=== PATIENT | female | born 1995 | race African-American/Black ===

== ENCOUNTER 2017-01-17 07:45 | Emergency (ER) | payer MEDICAID ==
[~2017-01-17] VITALS: Ht 162.6 cm; Wt 105.0 kg
[~2017-01-17 07:45] MED LIST: BENZ1CAP34 PO; ZITHTAB PO
[2017-01-17 07:46] VITALS: BP 136/74; PULSE 86; RESP 18; TEMP 98.7; O2SAT 98
[2017-01-17] MEDS ORDERED: TYLE325T PO (08:04)
--- NOTE | 2017-01-17 08:12 | PD ---
HPI Chief Complaint: Cold / Flu Symptoms Time Seen by Provider: 08:11 Travel History International Travel<30 days: No Contact w/Intl Traveler<30days: No Traveled to known affect area: No History of Present Illness HPI 21-year-old female presents to the emergency Department with complaint of cough , nasal congestion, sore throat, body aches times one and half weeks. Reports subjective fever at the beginning of her illness. Says worst symptom is sore throat. Denies lump in throat, unusual drooling, difficulty swallowing. Reports painful swallowing. Denies ear pain. Denies nausea, vomiting. Denies chest pain, shortness of breath. Took a Z-Gurpreet that she had at home and finished it about a week ago, with continued symptoms. No known allergies. Has no other medical complaints. No other modifying factors or associated signs and symptoms. PFSH Past Medical History Diminished Hearing: No Immunizations Current: Yes ?: Not : 0 Social History Alcohol Use: No Tobacco Use: No Substance Use: No Allergies-Medications (Allergen,Severity, Reaction): Coded Allergies: No Known Allergies (Verified , 01/17/17) Reported Meds & Prescriptions Reported Meds & Active Scripts Active Magic Mouthwash Pediatric/Adult Liq (Lidocaine/Diphenhydr/Alum/Mg/Simeth) 60 Ml Susp 5 Ml SWISH-SPIT Q3HR PRN Each 5mL contains: Diphenydramine 4.5mg, Viscous Lidocaine 2% 10mg, Maalox Advanced Regular Strength 2.7ml Reported Tylenol (Acetaminophen) 325 Mg Tab 650 Mg PO Q6H PRN Review of Systems Except as stated in HPI: all other systems reviewed are Neg Physical Exam Narrative GENERAL: Well-nourished, well-developed female patient, in no acute distress; afebrile, nontoxic-appearing SKIN: Warm and dry. No rash. HEAD: Atraumatic. Normocephalic. EYES: Pupils equal and round. No scleral icterus. No injection or drainage. ENT: Mucosa pink and moist. Oropharynx with erythema and edema; without exudates. No uvular edema. No uvular, palatal, or tonsillar deviation. Airway patent. EARS: Bilateral pinnae and external canals appear within normal limits. Bilateral tympanic membranes without erythema, dullness or perforation. NECK: Trachea midline. No lymphadenopathy. CARDIOVASCULAR: Regular rate and rhythm. No murmur appreciated. RESPIRATORY: No accessory muscle use. Clear to auscultation. Breath sounds equal bilaterally. No retractions or tachypnea. GASTROINTESTINAL: Abdomen soft, non-tender, nondistended. Hepatic and splenic margins not palpable. Bowel sounds are active 4 quadrants. MUSCULOSKELETAL: No obvious deformities. No clubbing. No cyanosis. No edema. NEUROLOGICAL: Awake and alert. Oriented 3. No obvious cranial nerve deficits. Motor grossly within normal limits. Normal speech. Moves all extremities. 5/5 strength to all extremities. PSYCHIATRIC: Appropriate mood and affect; insight and judgment normal. Data Data Last Documented VS Vital Signs Date Time Temp Pulse Resp B/P Pulse Ox O2 Delivery O2 Flow Rate FiO2 01/17/17 07:46 98.7 86 18 136/74 98 Room Air Orders Influenzae A/B Antigen (01/17/17 08:06) Group A Rapid Strep Screen (01/17/17 08:06) Strep Culture (Group A) (01/17/17 08:10) MDM Medical Decision Making Medical Screen Exam Complete: Yes Emergency Medical Condition: Yes Medical Record Reviewed: Yes Differential Diagnosis Influenza, strep pharyngitis, viral pharyngitis, sinusitis, viral illness Narrative Course 21-year-old female with cold/flu symptoms times one and half weeks. Patient is afebrile and nontoxic-appearing. Reports subjective fever at the beginning of her illness. Has taken a Z-Gurpreet and finished it about a week ago with continued symptoms. Rapid strep and influenza ordered. 0933: Rapid strep negative. 0954: Influenza negative. Discussed viral illness and symptomatic management. Magic mouthwash prescribed for home. Instructed patient to follow up with primary care provider. Patient verbalizes understanding and agreement with treatment plan. Patient is medically cleared and stable for discharge. Discussed reasons to return to the emergency department. Patient agrees with treatment plan. The patients vital signs are stable and the patient is stable for outpatient follow-up and treatment. Patient discharged home, stable and in no acute distress. Diagnosis Primary Impression: Viral illness [facility]errals: [facility] Primary Care Physician Patient Instructions: Cold Symptoms (ED), General Instructions, Safe Use of Cough and Cold Medicines (ED) Departure Forms: Tests/Procedures, Work Release Enter return to work date: Jan 18, 2017 Additional Instructions: Throw away and change your toothbrush 24 hours after starting antibiotics Get plenty of sleep/rest Rest your voice Drink plenty of fluids to prevent dehydration Use warm saltwater gargles to soothe throat pain Use an air humidifier/turn off ceiling fans Use throat lozenges as needed for sore throat Use ibuprofen or acetaminophen as needed to relieve pain and fever Follow-up with your primary care provider within 2-4 days Return immediately to the emergency department with worsening of symptoms Med/Other Pt SpecificInfo: Prescription(s) given Scripts Nzrrajpkvqqsafp-Xnavefeyd-Vcm-Alum-Simeth Liq (Magic Mouthwash Pediatric/Adult Liq)60 Ml Susp5 Ml SWISH-SPIT Q3HR PRN (SORE THROAT) #60 ML Ref 0 Each 5mL contains: Diphenydramine 4.5mg, Viscous Lidocaine 2% 10mg, Maalox Advanced Regular Strength 2.7ml Prov:Carmela Millan 01/17/17 Disposition: 01 DISCHARGE HOME Condition: Stable Carmela Millan Jan 17, 2017 08:11
[2017-01-17] MEDS ORDERED: MAGICPED SWISH-SPIT (09:33)
== END 2017-01-17 09:58 | disposition home or self-care (01) ==
LOC: NEPK 07:45
DX: B34.9 Viral infection, unspecified (principal)
CPT/HCPCS: 87081; 87804; 87880; 99283

== ENCOUNTER 2017-06-03 10:42 | Emergency (ER) | payer SELFPAY ==
[~2017-06-03] VITALS: Ht 162.6 cm; Wt 110.0 kg
[~2017-06-03 10:42] MED LIST changes: -BENZ1CAP34 PO; +MAGICPED SWISH-SPIT; +TYLE325T PO; -ZITHTAB PO
[2017-06-03 10:44] VITALS: BP 129/73; PULSE 128; RESP 16; TEMP 101.5; O2SAT 98
[2017-06-03] MEDS ORDERED: IBUPROFEN 600 MG TAB PO ONE (11:15)
[2017-06-03] MEDS ORDERED: OSELTAMIVIR PHOSPHATE 75 MG CAP PO ONE (11:15)
[2017-06-03] MEDS ORDERED: TYLE325T PO (11:25)
[2017-06-03] MEDS ORDERED: OSEL75 PO (11:25)
--- NOTE | 2017-06-03 11:26 | PD ---
HPI Chief Complaint: Cold / Flu Symptoms Time Seen by Provider: 11:03 Travel History International Travel<30 days: No Contact w/Intl Traveler<30days: No Traveled to known affect area: No History of Present Illness HPI 22-year-old female pleasant well-nourished well-developed. She complains of sore throat fever muscle aches and pains in coughing for about 2 days. Onset gradual. Timing constant. No known sick contacts. She denies chest pain and vomiting. Occasional nausea reported. Sleep has been difficult. PFSH Past Medical History Diminished Hearing: No Immunizations Current: Yes LMP: 06/02/17 : 0 Social History Alcohol Use: No Tobacco Use: No Substance Use: No Allergies-Medications (Allergen,Severity, Reaction): Coded Allergies: No Known Allergies (Verified Adverse Reaction, Unknown, 06/03/17) Reported Meds & Prescriptions Reported Meds & Active Scripts Active Tylenol (Acetaminophen) 325 Mg Tab 650 Mg PO Q6H PRN 7 Days Tamiflu (Oseltamivir Phosphate) 75 Mg Cap 75 Mg PO BID 7 Days Magic Mouthwash Pediatric/Adult Liq (Lidocaine/Diphenhydr/Alum/Mg/Simeth) 60 Ml Susp 5 Ml SWISH-SPIT Q3HR PRN Each 5mL contains: Diphenydramine 4.5mg, Viscous Lidocaine 2% 10mg, Maalox Advanced Regular Strength 2.7ml Reported Tylenol (Acetaminophen) 325 Mg Tab 650 Mg PO Q6H PRN Review of Systems Except as stated in HPI: all other systems reviewed are Neg General / Constitutional: Positive: Fever HENT: Positive: Sore Throat Physical Exam Narrative GENERAL: 22-year-old female pleasant well-nourished well-developed SKIN: Warm and dry. HEAD: Atraumatic. Normocephalic. EYES: Pupils equal and round. No scleral icterus. No injection or drainage. ENT: No nasal bleeding or discharge. Mucous membranes pink and moist. Posterior oropharynx intact and patent without erythema or asymmetry. NECK: Trachea midline. No JVD. CARDIOVASCULAR: Regular rate and rhythm. RESPIRATORY: No accessory muscle use. Clear to auscultation. Breath sounds equal bilaterally. GASTROINTESTINAL: Abdomen soft, non-tender, nondistended. Hepatic and splenic margins not palpable. MUSCULOSKELETAL: Extremities without clubbing, cyanosis, or edema. No obvious deformities. NEUROLOGICAL: Awake and alert. No obvious cranial nerve deficits. Motor grossly within normal limits. Five out of 5 muscle strength in the arms and legs. Normal speech. PSYCHIATRIC: Appropriate mood and affect; insight and judgment normal. Data Data Last Documented VS Vital Signs Date Time Temp Pulse Resp B/P (MAP) Pulse Ox O2 Delivery O2 Flow Rate FiO2 06/03/17 10:44 101.5 128 16 129/73 (91) 98 Room Air Vital signs reviewed Orders Orders Oseltamivir (Tamiflu) (06/03/17 11:15) Ibuprofen (Motrin) (06/03/17 11:15) Ed Discharge Order (06/03/17 11:30) [facility] Medical Decision Making Medical Screen Exam Complete: Yes Emergency Medical Condition: Yes Medical Record Reviewed: Yes Differential Diagnosis influenza, pna, strep pharyngitis, viral syndrome Narrative Course Presentation most in keeping with influenza syndrome. Tamiflu prescribed. The patient is tachycardic and febrile here. Given her age and the fairly classic presentation for influenza we will defer a sepsis work up. Tylenol aggressive fluid hydration at home. Pt offered IVF here however feels oral hydration at home is reasonable plan and is preferred by patient as well. Diagnosis Primary Impression: Influenza Med/Other Pt SpecificInfo: Prescription(s) given Scripts Acetaminophen (Tylenol) 325 Mg Tab 650 MG PO Q6H Y for FEVER for 7 Days, #56 TAB 0 Refills Prov: Lambert Bunch MD 06/03/17 Oseltamivir (Tamiflu) 75 Mg Cap 75 MG PO BID for Mgmt Viral Infection for 7 Days, #14 CAP 0 Refills Prov: Lambert Bunch MD 06/03/17 Disposition: 01 DISCHARGE HOME Condition: Stable Lambert Bunch MD Jun 03, 2017 11:26
== END 2017-06-03 12:06 | disposition home or self-care (01) ==
LOC: NEPD 10:42
DX: J11.1 Influenza due to unidentified influenza virus with other respiratory manifestations (principal); R11.0 Nausea
CPT/HCPCS: 99283

== ENCOUNTER 2017-07-16 15:00 | Emergency (ER) | payer SELFPAY ==
[~2017-07-16 15:00] MED LIST changes: +OSEL75 PO
[2017-07-16 15:02] VITALS: BP 141/90; PULSE 107; RESP 14; TEMP 98; O2SAT 98
--- NOTE | 2017-07-16 15:28 | PD ---
HPI Chief Complaint: Injury Time Seen by Provider: 15:19 Travel History International Travel<30 days: No Contact w/Intl Traveler<30days: No Traveled to known affect area: No History of Present Illness HPI 22-year-old female here for evaluation of right foot/ankle, lower back pain. She reports that prior to arrival she slipped in the bathroom. She now has an aching pain in her right foot and right ankle diffusely as well as her left lower back. Pain is moderate, aggravated by slipping and falling and ambulating with no alleviating factors. She has no other complaints at this time. [facility] Past Medical History Diminished Hearing: No Immunizations Current: Yes : 0 Social History Alcohol Use: No Tobacco Use: No Substance Use: No Allergies-Medications (Allergen,Severity, Reaction): Coded Allergies: No Known Allergies (Verified Adverse Reaction, Unknown, 07/16/17) Reported Meds & Prescriptions Reported Meds & Active Scripts Active Tylenol (Acetaminophen) 325 Mg Tab 650 Mg PO Q6H PRN 7 Days Tamiflu (Oseltamivir Phosphate) 75 Mg Cap 75 Mg PO BID 7 Days Magic Mouthwash Pediatric/Adult Liq (Lidocaine/Diphenhydr/Alum/Mg/Simeth) 60 Ml Susp 5 Ml SWISH-SPIT Q3HR PRN Each 5mL contains: Diphenydramine 4.5mg, Viscous Lidocaine 2% 10mg, Maalox Advanced Regular Strength 2.7ml Reported Tylenol (Acetaminophen) 325 Mg Tab 650 Mg PO Q6H PRN Review of Systems General / Constitutional: No: Fever, Chills Gastrointestinal: No: Nausea, Vomiting, Abdominal Pain Musculoskeletal: Positive: Pain Skin: Positive Other (denies open wounds) Physical Exam Narrative GENERAL: Well-nourished female in no acute distress SKIN: Warm and dry. No bruising or soft tissue swelling HEAD: Atraumatic. Normocephalic. EYES: Pupils equal and round. No scleral icterus. No injection or drainage. ENT: No nasal bleeding or discharge. Mucous membranes pink and moist. NECK: Trachea midline. No JVD. CARDIOVASCULAR: Regular rate and rhythm. No murmur appreciated. RESPIRATORY: No accessory muscle use. Clear to auscultation. Breath sounds equal bilaterally. GASTROINTESTINAL: Abdomen soft, non-tender, nondistended. Hepatic and splenic margins not palpable. MUSCULOSKELETAL: No obvious deformities. Generalized tenderness to palpation of the right foot and ankle with no obvious deformity. There is pain with movement of the right foot and ankle. There is tenderness to palpation to the lumbar spine and left lumbar paravertebral musculature with no obvious deformity. NEUROLOGICAL: Awake and alert. No obvious cranial nerve deficits. Motor grossly within normal limits. Normal speech. Data Data Last Documented VS Vital Signs Date Time Temp Pulse Resp B/P (MAP) Pulse Ox O2 Delivery O2 Flow Rate FiO2 07/16/17 15:02 98.0 107 14 141/90 (107) 98 Orders Orders Ankle, Complete ([id number]) (07/16/17 ) Foot, Complete (Yco3phs) (07/16/17 ) Spine, Lumbar - Ltd (Ap & Lat) (07/16/17 ) Ketorolac Inj (Toradol Inj) (07/16/17 15:30) Ed Discharge Order (07/16/17 16:30) MDM Medical Decision Making Medical Screen Exam Complete: Yes Emergency Medical Condition: Yes Medical Record Reviewed: Yes Differential Diagnosis Sprain, contusion, fracture, retroperitoneal hematoma Narrative Course X-ray imaging of the lumbar spine, right ankle, right foot will be obtained. Toradol injection administered. X-ray imaging is all negative. The patient is stable for discharge. Diagnosis Primary Impression: Lumbar strain Additional Impression: Right foot strain Patient Instructions: General Instructions, Low Back Strain (DC) Additional Instructions: Avoid activities that increase her pain. Tylenol or Motrin for pain. Follow- up with primary care physician next week. Return for any emergent medical conditions. Med/Other Pt SpecificInfo: No Change to Meds Disposition: 01 DISCHARGE HOME Condition: Stable Israel Bennett Jul 16, 2017 15:28
[2017-07-16] MEDS ORDERED: KETOROLAC TROMETHAMINE 60 MG/2 ML (IM) VIAL IM ONE (15:30)
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
== END 2017-07-16 16:43 | disposition home or self-care (01) ==
LOC: NEPK 15:00
DX: S39.012A Strain of muscle, fascia and tendon of lower back, initial encounter (principal); S96.911A Strain of unspecified muscle and tendon at ankle and foot level, right foot, initial encounter; W01.0XXA Fall on same level from slipping, tripping and stumbling without subsequent striking against object, initial encounter; Y92.002 Bathroom of unspecified non-institutional (private) residence as the place of occurrence of the external cause; Z79.899 Other long term (current) drug therapy
CPT/HCPCS: 72100; 73610; 73630; 96372; 99283; J1885